=== PATIENT | female | born 1965 | race Two or more races ===

== ENCOUNTER 2024-10-17 19:28 | Inpatient (IN) | payer OTHER ==
[~2024-10-17] VITALS: Ht 160 cm; Wt 59.0 kg
[2024-10-17] MEDS ORDERED: BISOPROLOL FUMAR5 MG PO (19:37)
[2024-10-17] MEDS ORDERED: TRAZODONE HCL100 MG (19:37)
--- NOTE | 2024-10-17 19:39 | NUR ---
PTE ALERTA Y ORIENTADA X3 REFIERE DOLOR ABDOMINAL, VOMITOSX 6 Y DIAREAH X7 SE MIDEN S/V Y SE UBICA.
[2024-10-17] MEDS ORDERED: 0.9 % SODIUM CHLORIDE 1,000 ML IV SCH ×2 (20:00→23:45)
[2024-10-17] MEDS ORDERED: FAMOtidine 10 MG/ML (4ML VIAL) IV PUSH ONE (20:00)
[2024-10-17] MEDS ORDERED: KETOROLAC TROMETHAMINE 30 MG VIAL IV ONE (20:00)
[2024-10-17] MEDS ORDERED: ONDANSETRON HCL 2 MG/ML VIAL IV ONE (20:00)
[2024-10-17] MEDS ORDERED: METHYLPREDNISOLONE SOD SUCC 125 MG VIAL IV ONE (20:00)
[2024-10-17] MEDS ORDERED: ONDANSETRON HCL 2 MG/ML VIAL ONE (20:04)
[2024-10-17] MEDS ORDERED: KETOROLAC TROMETHAMINE 30 MG VIAL ONE (20:04)
[2024-10-17] MEDS ORDERED: METHYLPREDNISOLONE SOD SUCC 125 MG VIAL ONE (20:04)
[2024-10-17] MEDS ORDERED: FAMOTIDINE/PF 20 MG/2 ML VIAL ONE (20:04)
[2024-10-17 20:09] LABS: HEMATOCRIT 43.6 % (36.0-45.00); MEAN CELL VOLUME 80.2 fL (80.00-100.00); MEAN CORPUSCULAR HEMOGLOBIN 27.5 pg (27.00-32.0); MEAN CORPUSCULAR HGB CONC 34.3 g/dl (32.0-36.0); PLATELET COUNT 307 K/uL (150-450); RED BLOOD COUNT 5.44 M/uL (4.00-6.00)
--- NOTE | 2024-10-17 20:28 | NUR ---
SE EDUCA APCIENTE SOBRE EL [place] MEDICO Y ESTA REFIERE ENTENDER. SE CANALIZA Y SE ADMINITRA MEDICAMENTOS NIKA ORDEN MEDICA. SE SANDRA MUESTRAS DE LABORATORIOS Y SE ENVIAN
[2024-10-17 20:37] LABS: ALBUMIN 4.1 gm/dL (3.4-5.0); BILIRUBIN TOTAL 0.44 mg/dL (0.3-1.2); BILIRUBIN,CONJUGATED 0.11 mg/dL (0.0-0.2); BILIRUBIN,UNCONJUGATED 0.33 mg/dL (0.0-0.6); CALCIUM 9.2 mg/dL (8.5-10.1); CREATININE SERUM 1.13 mg/dL (0.55-1.02); GFR 49.12; GLOBULINA 3.7 G/DL (2.4-3.5); TOTAL PROTEIN 7.8 gm/dL (6.4-8.2)
[2024-10-17 21:08] LABS: POTASSIUM 2.98 mEq/L (3.5-5.1)
[2024-10-17] MEDS ORDERED: POTASSIUM CHLORIDE IN 0.9%NACL 1,000 ML IV ONE (21:15)
[2024-10-17] MEDS ORDERED: PIPERACILLIN/TAZOBACTAM SODIUM 3.375 GM VIAL IV ONE ×2 (21:15→21:20)
--- NOTE | 2024-10-17 21:22 | NUR ---
SE ENTREGA ENVASE DE FECAL
[2024-10-17] MEDS ORDERED: ACETAMINOPHEN 500 MG GEL..CAP PO PRN (23:45)
[2024-10-17] MEDS ORDERED: ONDANSETRON HCL 4 MG in 0.9 % SODIUM CHLORIDE 50 ML IV PRN (23:45)
[2024-10-18] MEDS ORDERED: PIPERACILLIN/TAZOBACTAM SODIUM 3.375 GM in DEXTROSE 5 % IN WATER 100 ML IV SCH
[2024-10-18] MEDS ORDERED: PIPERACILLIN/TAZOBACTAM SODIUM 3.375 GM VIAL IV ONE (04:46)
[2024-10-18 06:12] LABS: PH,URINE 6.5 (5.0-8.0); URINE APPEARANCE Clear; URINE BILIRRUBIN Negative (NEGATIVE); URINE BLOOD Negative; URINE COLOR Yellow; URINE KETONE Negative (NEGATIVE); URINE LEUKOCYTE Negative; URINE NITRATE Negative; URINE PROTEIN Negative (NEGATIVE)
[2024-10-18 06:15] LABS: URINE BACTERIA 4.8 uL (0.0-1933); URINE EPITHELIAL CELLS 2.6 uL (0.0-38.8); URINE RBC 13.6 uL (0.0-20.8); URINE WBC 3.6 uL (0.0-23.2)
[2024-10-18 06:20] LABS: URINE GLUCOSE 100 MG/DL (NEGATIVE)
[2024-10-18 06:40] LABS: INR 0.95; PARTIAL THROMBOPLASTIN TIME 22.7 SECONDS (22.0-34.0); PROTHROMBIN TIME 10.4 SECONDS (9.0-11.5)
[2024-10-18 06:49] LABS: MAGNESIUM 2.1 mg/dL (1.8-2.4); PHOSPHOROUS 3.7 mg/dL (2.5-4.9)
[2024-10-18] MEDS ORDERED: ENOXAPARIN SODIUM 40 MG/0.4 ML SYRINGE SUBCUTANEO SCH (09:00)
[2024-10-18] MEDS ORDERED: LOSARTAN POTASSIUM 25 MG TABLET PO SCH (09:00)
[2024-10-18] MEDS ORDERED: FAMOTIDINE/PF 20 MG in 0.9 % SODIUM CHLORIDE 8 ML IV PUSH SCH (09:00)
[2024-10-18 10:01] VITALS: BP 133/64; O2SAT 99
[2024-10-18 18:33] VITALS: BP 132/81; O2SAT 98
[2024-10-18] MEDS ORDERED: TRAZODONE HCL 50 MG TABLET PO SCH (21:00)
[2024-10-19 00:56] VITALS: BP 102/69; O2SAT 96
[2024-10-19 06:14] LABS: HEMATOCRIT 35.7 % (36.0-45.00); HEMOGLOBIN 12.3 g/dL (12.0-15.00); MEAN CELL VOLUME 81.2 fL (80.00-100.00); MEAN CORPUSCULAR HEMOGLOBIN 27.9 pg (27.00-32.0); MEAN CORPUSCULAR HGB CONC 34.3 g/dl (32.0-36.0); PLATELET COUNT 282 K/uL (150-450); RED CELL DISTRIBUTION WIDTH 13.7 % (11.5-14.5)
[2024-10-19 06:46] LABS: BILIRUBIN TOTAL 0.59 mg/dL (0.3-1.2); CALCIUM 8.2 mg/dL (8.5-10.1); CREATININE SERUM 0.79 mg/dL (0.55-1.02); GFR 74.23; GLOBULINA 2.5 G/DL (2.4-3.5); MAGNESIUM 1.8 mg/dL (1.8-2.4); PHOSPHOROUS 3.9 mg/dL (2.5-4.9); POTASSIUM 3.51 mEq/L (3.5-5.1); TOTAL PROTEIN 5.5 gm/dL (6.4-8.2)
[2024-10-19 06:49] LABS: C-REACTIVE PROTEIN 1.33 MG/DL (0.00-0.29)
[2024-10-19 10:07] VITALS: BP 145/78; O2SAT 98
[2024-10-19] MEDS ORDERED: MORPHINE SULFATE 4 MG/ML CARTRIDGE IV PRN (10:15)
[2024-10-19 18:40] VITALS: BP 147/88
[2024-10-20 01:10] VITALS: BP 152/89
[2024-10-20] MEDS ORDERED: PANTOPRAZOLE SODIUM 40 MG/VIAL VIAL IV SCH (09:00)
[2024-10-20 09:55] VITALS: BP 148/90; O2SAT 98
[2024-10-20] MEDS ORDERED: LOPERAMIDE HCL 2 MG CAPSULE PO NR (12:00)
[2024-10-20 18:02] VITALS: BP 154/85; O2SAT 98
[2024-10-21 01:37] VITALS: BP 133/86
[2024-10-21 09:26] VITALS: BP 151/90; O2SAT 98
[2024-10-21] MEDS ORDERED: LOPERAMIDE HCL 2 MG CAPSULE PO NR (13:10)
[2024-10-21] MEDS ORDERED: CIPROFLOXACIN IN 5 % DEXTROSE 200 ML IV SCH (17:00)
[2024-10-21] MEDS ORDERED: METRONIDAZOLE/SODIUM CHLORIDE 100 ML IV SCH (17:00)
[2024-10-21 17:13] VITALS: BP 121/80; O2SAT 97
[2024-10-22 01:43] VITALS: BP 125/79
[2024-10-22 05:53] LABS: HEMOGLOBIN 12.1 g/dL (12.0-15.00); MEAN CELL VOLUME 81.1 fL (80.00-100.00); MEAN CORPUSCULAR HEMOGLOBIN 27.3 pg (27.00-32.0); MEAN CORPUSCULAR HGB CONC 33.6 g/dl (32.0-36.0); PLATELET COUNT 280 K/uL (150-450); RED BLOOD COUNT 4.44 M/uL (4.00-6.00); RED CELL DISTRIBUTION WIDTH 13.7 % (11.5-14.5)
[2024-10-22 06:52] LABS: ALBUMIN 2.6 gm/dL (3.4-5.0); CALCIUM 8.2 mg/dL (8.5-10.1); CREATININE SERUM 0.73 mg/dL (0.55-1.02); GFR 81.32; PHOSPHOROUS 2.9 mg/dL (2.5-4.9)
[2024-10-22 07:32] LABS: POTASSIUM 2.99 mEq/L (3.5-5.1)
[2024-10-22 08:32] VITALS: BP 128/83; O2SAT 95
[2024-10-22] MEDS ORDERED: SODIUM CHLORIDE 0.45 % 1,000 ML IV SCH (08:45)
[2024-10-22] MEDS ORDERED: POTASSIUM CHLORIDE IN WATER 40 MEQ/100 ML PIGGYBAG IV SCH (09:00)
[2024-10-22] MEDS ORDERED: MAGNESIUM SULFATE 50% 1,000 MG/2 ML VIAL IM NR (09:30)
[2024-10-22] MEDS ORDERED: SUCRALFATE 1 G TABLET PO SCH (17:00)
[2024-10-22 18:44] VITALS: BP 137/91
[2024-10-22] MEDS ORDERED: PANTOPRAZOLE SODIUM 40 MG TABLET.DR PO SCH (21:00)
[2024-10-23] VITALS (15 sets, daily range): BP systolic 60–142; BP diastolic 49–86; O2SAT 96–100
[2024-10-23] MEDS ORDERED: PANTOPRAZOLE SODIUM 40 MG/VIAL VIAL IV PUSH SCH (09:44)
[2024-10-23] MEDS ORDERED: 0.9 % SODIUM CHLORIDE 1,000 ML IV ONE (09:45)
[2024-10-23] MEDS ORDERED: LORazepam 2 MG/ML VIAL IV PUSH PRN (10:00)
[2024-10-23] MEDS ORDERED: PROMETHAZINE HCL 50 MG/ML AMPUL IM NR (10:00)
[2024-10-23 11:14] LABS: HEMATOCRIT 24.9 % (36.0-45.00); MEAN CELL VOLUME 81.4 fL (80.00-100.00); MEAN CORPUSCULAR HEMOGLOBIN 27.7 pg (27.00-32.0); PLATELET COUNT 364 K/uL (150-450); RED BLOOD COUNT 3.06 M/uL (4.00-6.00); RED CELL DISTRIBUTION WIDTH 13.5 % (11.5-14.5)
[2024-10-23 11:50] LABS: HEMOGLOBIN 8.5 g/dL (12.0-15.00)
[2024-10-23 11:56] LABS: ALBUMIN 2.4 gm/dL (3.4-5.0); BILIRUBIN TOTAL 0.41 mg/dL (0.3-1.2); CALCIUM 7.9 mg/dL (8.5-10.1); CKMB 1.1 NG/ML (0.5-3.6); CREATININE SERUM 1.27 mg/dL (0.55-1.02); GFR 42.92; GLOBULINA 2.5 G/DL (2.4-3.5); PHOSPHOROUS 4.4 mg/dL (2.5-4.9); POTASSIUM 3.49 mEq/L (3.5-5.1); TOTAL PROTEIN 4.9 gm/dL (6.4-8.2)
[2024-10-23 11:57] LABS: C-REACTIVE PROTEIN 8.23 MG/DL (0.00-0.29)
[2024-10-23] MEDS ORDERED: PANTOPRAZOLE SODIUM 80 MG in 0.9 % SODIUM CHLORIDE 100 ML IV SCH (14:30)
[2024-10-23] MEDS ORDERED: 0.9 % SODIUM CHLORIDE 1,000 ML IV SCH (14:30)
[2024-10-23] MEDS ORDERED: NOREPINEPHRINE BITARTRATE 1 MG/ML AMPUL IV ONE (14:33)
[2024-10-23] MEDS ORDERED: NOREPINEPHRINE BITARTRATE 4 MG in DEXTROSE 5 % IN WATER 250 ML IV SCH (15:00)
[2024-10-23 16:00] LABS: ABG PH 7.419 (7.35-7.45); ABG PO2 164.8 mmHg (80-100); ABG pCO2 30.4 mmHg (35-45); BASE EXCESS -3.9 mmol/l; BICARBONATE 19.2 mmol/l (23-25); SaO2 99.5 %; Tco2 20.2 mmol/l
[2024-10-23 16:13] LABS: URINE APPEARANCE Cloudy; URINE BILIRRUBIN Negative (NEGATIVE); URINE BLOOD NHT; URINE COLOR Dark Yellow; URINE KETONE 15 (NEGATIVE); URINE LEUKOCYTE Small; URINE NITRATE Positive
[2024-10-23 16:16] LABS: URINE BACTERIA 89.3 uL (0.0-1933); URINE CAST 12.52 uL (0.0-1.40); URINE EPITHELIAL CELLS 44.9 uL (0.0-38.8); URINE RBC 57.4 uL (0.0-20.8); URINE WBC 47.9 uL (0.0-23.2)
[2024-10-23 16:23] LABS: o2 32 %; puncture site RADIAL LEFT
[2024-10-23 16:24] LABS: allen test SATISFACTORY; mode NASAL CANNULA
[2024-10-23 16:51] LABS: URINE GLUCOSE 250 MG/DL (NEGATIVE); URINE PROTEIN 100 (NEGATIVE)
[2024-10-23] MEDS ORDERED: CEFTRIAXONE SODIUM 2,000 MG VIAL IV SCH (17:00)
[2024-10-23] MEDS ORDERED: POTASSIUM CHLORIDE IN WATER 40 MEQ/100 ML PIGGYBAG IV NR (17:00)
[2024-10-23] MEDS ORDERED: ONDANSETRON HCL 2 MG/ML VIAL IV SCH (18:00)
[2024-10-23] MEDS ORDERED: LevETIRAcetam 500 MG/5 ML VIAL IV ONE (20:25)
== END 2024-10-23 22:28 | disposition expired | DRG 392 ==
LOC: ER 19:28 → SEC-K 23:39 → MEDJ 23:39
PROVIDERS: General Practice; Internal Medicine; Internal Medicine Infectious Disease; Student in an Organized Health Care Education/Training Program; ADMIT Internal Medicine; ATTEND Internal Medicine
PROC: BW21ZZZ Computerized Tomography (CT Scan) of Abdomen and Pelvis (ICD-10-PCS; principal; 2024-10-17)
PROC: BU4CZZZ Ultrasonography of Uterus and Ovaries (ICD-10-PCS; 2024-10-19)
PROC: BW21ZZZ Computerized Tomography (CT Scan) of Abdomen and Pelvis (ICD-10-PCS; 2024-10-22)
PROC: 4A12X4Z Monitoring of Cardiac Electrical Activity, External Approach (ICD-10-PCS; 2024-10-23)
PROC: 0BH18EZ Insertion of Endotracheal Airway into Trachea, Via Natural or Artificial Opening Endoscopic (ICD-10-PCS; 2024-10-23)
DX: K52.89 Other specified noninfective gastroenteritis and colitis (principal); K57.92 Diverticulitis of intestine, part unspecified, without perforation or abscess without bleeding; R65.10 Systemic inflammatory response syndrome (SIRS) of non-infectious origin without acute organ dysfunction; E87.6 Hypokalemia; K29.70 Gastritis, unspecified, without bleeding; R00.0 Tachycardia, unspecified; N83.291 Other ovarian cyst, right side; I10 Essential (primary) hypertension; R09.2 Respiratory arrest; R10.0 Acute abdomen